=== PATIENT | male | born 1985 | race Caucasian/White ===

== ENCOUNTER 2024-10-06 11:13 | Emergency (ER) | payer MEDICAID, SELFPAY ==
[2024-10-06 11:24] VITALS: BP 155/93; PULSE 69; RESP 16; TEMP 36.8; O2SAT 98; BMI 35.3
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
[2024-10-06] MEDS: KETOROLAC INJ 30 MG/ML VIAL IM (11:30)
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
== END 2024-10-06 12:15 | disposition home or self-care (01) ==
LOC: SERX 12:09
PROVIDERS: Emergency Provider Emergency Medicine; PCP Family Medicine
DX: S49.92XA Unspecified injury of left shoulder and upper arm, initial encounter (principal); S69.92XA Unspecified injury of left wrist, hand and finger(s), initial encounter; V89.2XXA Person injured in unspecified motor-vehicle accident, traffic, initial encounter
CPT/HCPCS: 73030; 73110; 96372; 99283; J1885